=== PATIENT | male | born 1995 ===

== ENCOUNTER 2016-11-19 00:58 | Emergency (ER) | payer OTHER ==
[2016-11-19 01:09] VITALS: RESP 18; TEMP 98.3; O2SAT 94
[2016-11-19 02:46] VITALS: BP 110/54; PULSE 98
== END 2016-11-19 02:41 | disposition home or self-care (01) ==
LOC: ED 00:58
DX: S06.9X9A Unspecified intracranial injury with loss of consciousness of unspecified duration, initial encounter (principal); R40.2412 Glasgow coma scale score 13-15, at arrival to emergency department; Y04.0XXA Assault by unarmed brawl or fight, initial encounter; F10.129 Alcohol abuse with intoxication, unspecified
CPT/HCPCS: 70450; 99282; 99284

== ENCOUNTER 2017-07-30 05:30 | Emergency (ER) | payer OTHER ==
[2017-07-30 05:36] VITALS: TEMP 96.7
[2017-07-30] MEDS ORDERED: PANTOPRAZOLE SODIUM 40 MG ECT PO ONE ×2 (06:01→06:18)
[2017-07-30] MEDS ORDERED: LABETALOL HYDROCHLORIDE 100 MG TAB PO ONE (06:16)
[2017-07-30] MEDS ORDERED: LABETALOL HYDROCHLORIDE 100 MG TAB ONE (06:20)
[2017-07-30 06:25] LABS: BASOPHILS % (AUTO) 1 % (0-3); EOSINOPHILS % (AUTO) 4 % (0-9); HEMATOCRIT 44 % (39-53); MEAN CORPUSCULAR HGB CONC 36.8 gm/dl (32.0-36.0); MEAN CORPUSCULAR VOLUME 90 fL (80-100); MONOCYTES % (AUTO) 9.4 % (0-12); NEUTROPHILS % (AUTO) 51.2 % (37-80)
[2017-07-30 06:41] LABS: CALCIUM 8.9 mg/dl (8.5-10.1); GLOM FILT RATE 81 mL/min (>60); POTASSIUM 3.8 mMol/L (3.5-5.1); SODIUM 141 mMol/L (136-145)
[2017-07-30 07:57] VITALS: PULSE 91; O2SAT 91
[2017-07-30 07:58] VITALS: BP 129/84; RESP 27
== END 2017-07-30 07:25 | disposition home or self-care (01) ==
LOC: ED 05:30
DX: R07.89 Other chest pain (principal); K21.9 Gastro-esophageal reflux disease without esophagitis; R03.0 Elevated blood-pressure reading, without diagnosis of hypertension
CPT/HCPCS: 36415; 71045; 80048; 84484; 85025; 93005; 99284; A9270-GY

== ENCOUNTER 2017-09-08 11:10 | Inpatient (IN) | payer OTHER ==
[2017-09-08] MEDS ORDERED: HYDROMORPHONE 1 MG/ML SYRINGE IV ONE (11:26)
[2017-09-08] MEDS ORDERED: ONDANSETRON HCL 4 MG/2 ML SOL IV ONE ×2 (11:26→18:00)
[2017-09-08] MEDS ORDERED: SODIUM CHLORIDE 0.9% 1000ML 1,000 ML IV ONE ×3 (11:27→22:05)
[2017-09-08] MEDS ORDERED: ONDANSETRON HCL 4 MG/2 ML SOL ONE (11:36)
[2017-09-08 11:37] LABS: BASOPHILS % (AUTO) 1 % (0-3); EOSINOPHILS % (AUTO) 4 % (0-9); HEMATOCRIT 48 % (39-53); HEMOGLOBIN 16.2 gm/dl (13.5-17.7); LYMPHOCYTES % (AUTO) 35.5 % (10-50); MEAN CORPUSCULAR HEMOGLOBIN 32.8 pg (27.0-32.0); MEAN CORPUSCULAR VOLUME 96 fL (80-100); MONOCYTES % (AUTO) 8.5 % (0-12); NEUTROPHILS % (AUTO) 51.1 % (37-80)
[2017-09-08] MEDS ORDERED: HYDROMORPHONE HCL 2 MG/ML SOL ONE ×4 (11:39→13:57)
[2017-09-08] MEDS ORDERED: HYDROMORPHONE 1 MG/ML SYRINGE IV PRN ×2 (11:40→11:58)
[2017-09-08 11:53] LABS: ALBUMIN 3.9 gm/dl (3.4-5.0); BILIRUBIN,TOTAL 0.4 mg/dl (0.2-1.0); CARBON DIOXIDE 24.7 mEq/L (21-32); CREATININE 1.09 mg/dl (0.80-1.30); POTASSIUM 3.6 mMol/L (3.5-5.1); TOTAL PROTEIN 7.9 gm/dl (6.4-8.2)
[2017-09-08 12:50] LABS: APPEARANCE,URINE Clear; BILIRUBIN,URINE NEGATIVE (NEGATIVE); COLOR,URINE Yellow; GLUCOSE, URINE (UA) NEGATIVE (NEGATIVE); KETONES,URINE NEGATIVE (NEGATIVE); LEUKOCYTE ESTERASE ,URINE NEGATIVE (NEGATIVE); NITRATE,URINE NEGATIVE (NEGATIVE); OCCULT BLOOD,URINE NEGATIVE (NEG-TRACE); PH,URINE 6.5; UROBILINOGEN,URINE 0.2 (0.2-1.0 EU)
[2017-09-08 12:59] LABS: BACTERIA NEGATIVE (< 1+); CRYSTALS NEGATIVE (0-3 AVE/HPF); EPITHELIAL CELLS 0-2 (SQUAMOUS); RBC,URINE NEG (0-3AV/HPF); WBC,URINE NEG (0-5AV/HPF)
[2017-09-08] MEDS ORDERED: PIPERACILLIN/TAZOBACT 3.375 GM PDS IV ONE ×3 (13:32→19:32)
[2017-09-08] MEDS: PIPERACILLIN/TAZOBACT 3.375 GM 3.375 GM in SODIUM CHLORIDE 0.9% 100 ML 100 ML IV SCH ×2 (13:46→19:55)
[2017-09-08] MEDS: HYDROMORPHONE HCL 2 MG/ML SOL IV PRN ×2 (14:06→17:08)
[2017-09-08] MEDS ORDERED: LISINOPRIL 10 MG PO SCH (14:30)
[2017-09-08] MEDS: PANTOPRAZOLE SODIUM 40 MG/10 ML PDS IV SCH (14:48)
[2017-09-08] MEDS: AMLODIPINE 5 MG TAB PO SCH (14:48)
[2017-09-08] MEDS ORDERED: ONDANSETRON HCL 4 MG/2 ML SOL IV PRN (17:03)
[2017-09-08] MEDS ORDERED: KETOROLAC TROMETHAMINE 30 MG/ML SOL IV ONE (17:46)
[2017-09-08] MEDS: PROCHLORPERAZINE EDISYLATE 5 MG/ML SOL IV PRN (18:30)
[2017-09-08] MEDS ORDERED: MORPHINE SULFATE 10 MG/ML SOL IV PRN (19:15)
[2017-09-08] MEDS ORDERED: SODIUM CHLORIDE 0.9% 100 ML 100 ML IV ONE ×2 (19:32)
[2017-09-08] MEDS ORDERED: MORPHINE SULFATE 10 MG/ML SOL ONE ×2 (21:06→22:21)
[2017-09-08] MEDS ORDERED: PROMETHAZINE HYDROCHLORIDE 25 MG/ML SOL IV ONE (21:56)
[2017-09-08] MEDS ORDERED: SODIUM CHLORIDE 0.9% FLUSH 10 ML SOL IV PRN (22:14)
[2017-09-08] MEDS: MORPHINE SULFATE 10 MG/ML SOL IV PRN (22:24)
[2017-09-08] MEDS: ONDANSETRON HCL 4 MG/2 ML SOL IV SCH (23:26)
[2017-09-09] MEDS: PIPERACILLIN/TAZOBACT 3.375 GM 3.375 GM in SODIUM CHLORIDE 0.9% 100 ML 100 ML IV SCH ×2 (01:51→07:34)
[2017-09-09] MEDS ORDERED: SODIUM CHLORIDE 0.9% 1000 ML SOL IV SCH (02:15)
[2017-09-09] MEDS: SODIUM CHLORIDE 0.9% 1000ML 1,000 ML IV SCH ×2 (03:00→07:37)
[2017-09-09] MEDS ORDERED: MORPHINE SULFATE 10 MG/ML SOL ONE ×3 (03:55→06:13)
[2017-09-09] MEDS: MORPHINE SULFATE 10 MG/ML SOL IV PRN ×3 (04:00→06:17)
[2017-09-09] MEDS: PROCHLORPERAZINE EDISYLATE 5 MG/ML SOL IV PRN (04:00)
[2017-09-09] MEDS: ONDANSETRON HCL 4 MG/2 ML SOL IV SCH (05:01)
[2017-09-09 06:52] LABS: BILIRUBIN,TOTAL 0.9 mg/dl (0.2-1.0); CALCIUM 8.4 mg/dl (8.5-10.1); CARBON DIOXIDE 27.5 mEq/L (21-32); CREATININE 1.2 mg/dl (0.80-1.30); POTASSIUM 3.8 mMol/L (3.5-5.1); TOTAL PROTEIN 7.8 gm/dl (6.4-8.2)
[2017-09-09 06:56] LABS: HEMATOCRIT 45 % (39-53); HEMOGLOBIN 15.6 gm/dl (13.5-17.7); MEAN CORPUSCULAR HGB CONC 34.9 gm/dl (32.0-36.0); MEAN CORPUSCULAR VOLUME 98 fL (80-100)
[2017-09-09] MEDS ORDERED: LORAZEPAM 2 MG/ML 10ML MDV 2 MG/ML VIAL IV ONE (07:23)
[2017-09-09] MEDS ORDERED: SODIUM CHLORIDE 0.9% 100 ML 100 ML IV ONE (07:24)
[2017-09-09] MEDS ORDERED: PIPERACILLIN/TAZOBACT 3.375 GM PDS IV ONE (07:24)
[2017-09-09] MEDS ORDERED: LORAZEPAM 2 MG/ML SOL ONE (07:36)
[2017-09-09 07:41] VITALS: BP 151/93; PULSE 108; TEMP 97
[2017-09-09] MEDS: PANTOPRAZOLE SODIUM 40 MG/10 ML PDS IV SCH (07:41)
[2017-09-09] MEDS: AMLODIPINE 5 MG TAB PO SCH (07:41)
[2017-09-09 08:18] LABS: BAND NEUTROPHILS % (MANUAL) 2 %; BASOPHILS % (MANUAL) 0 % (0-3); EOSINOPHILS % (MANUAL) 0 % (0-9); LYMPHOCYTES % (MANUAL) 11 % (10-50); MONOCYTES % (MANUAL) 11 % (0-12); NEUTROPHILS % (MANUAL) 76 % (37-80); NORMAL RBCS NORMAL RBCS; PLATELET MORPHOLOGY COMMENT ADEQUATE
[2017-09-09 08:44] VITALS: RESP 18; O2SAT 97
[2017-09-09] MEDS ORDERED: LISINOPRIL 5 MG TAB PO SCH (09:00)
== END 2017-09-09 08:45 | disposition short-term general hospital (02) | DRG 282 ==
LOC: ED 11:10 → UNDOADMIN 13:11 → ACUTE CARE 13:11
PROVIDERS: ADMIT Family Medicine; ATTEND Family Medicine
DX: K85.10 Biliary acute pancreatitis without necrosis or infection (principal); F12.90 Cannabis use, unspecified, uncomplicated; R06.02 Shortness of breath
CPT/HCPCS: 36415; 74177; 80053; 81001; 82150; 85007; 85025; 85027; 93005; 94762; 96365; 96366; 96374; 96375; 99070; 99222; 99238; 99285; J0780; J1170; J1885; J2060; J2270; J2405; J2543; J2550; Q9967; A9270-GY

== ENCOUNTER 2017-11-29 18:11 | Inpatient (IN) | payer OTHER ==
[2017-11-29] MEDS ORDERED: MORPHINE SULFATE 10 MG/ML SOL IV ONE (18:29)
[2017-11-29] MEDS ORDERED: SODIUM CHLORIDE 0.9% 1000ML 1,000 ML IV SCH (18:30)
[2017-11-29] MEDS ORDERED: MORPHINE SULFATE 10 MG/ML SOL ONE (18:46)
[2017-11-29 18:59] LABS: ALBUMIN 4.2 gm/dl (3.4-5.0); BILIRUBIN,TOTAL 0.7 mg/dl (0.2-1.0); CALCIUM 9.5 mg/dl (8.5-10.1); CREATININE 1.16 mg/dl (0.80-1.30); POTASSIUM 4.1 mMol/L (3.5-5.1); TOTAL PROTEIN 7.6 gm/dl (6.4-8.2)
[2017-11-29 19:09] LABS: APPEARANCE,URINE Clear; BILIRUBIN,URINE NEGATIVE (NEGATIVE); COLOR,URINE Yellow; GLUCOSE, URINE (UA) NEGATIVE (NEGATIVE); KETONES,URINE TRACE (NEGATIVE); LEUKOCYTE ESTERASE ,URINE NEGATIVE (NEGATIVE); NITRATE,URINE NEGATIVE (NEGATIVE); OCCULT BLOOD,URINE NEGATIVE (NEG-TRACE); PH,URINE 5.5; UROBILINOGEN,URINE 0.2 (0.2-1.0 EU)
[2017-11-29] MEDS ORDERED: HYDROMORPHONE HCL 2 MG/ML SOL IV ONE (19:32)
[2017-11-29] MEDS ORDERED: HYDROMORPHONE HCL 2 MG/ML SOL ONE ×2 (19:34→20:59)
[2017-11-29 19:37] LABS: HEMATOCRIT 45 % (39-53)
[2017-11-29 19:42] LABS: BACTERIA NEGATIVE (< 1+); CRYSTALS NEGATIVE (0-3 AVE/HPF); EPITHELIAL CELLS 0-1 (SQUAMOUS); RBC,URINE NEGATIVE (0-3AV/HPF); WBC,URINE NEGATIVE (0-5AV/HPF)
[2017-11-29] MEDS: SODIUM CHLORIDE 0.9% 1000ML 1,000 ML IV SCH (20:00)
[2017-11-29] MEDS: HYDROMORPHONE HCL 2 MG/ML SOL IV PRN ×2 (21:02→23:48)
[2017-11-30] MEDS: SODIUM CHLORIDE 0.9% 1000ML 1,000 ML IV SCH ×6 (01:38→23:02)
[2017-11-30] MEDS: HYDROMORPHONE HCL 2 MG/ML SOL IV PRN ×8 (02:07→21:58)
[2017-11-30] MEDS ORDERED: LORAZEPAM 2 MG/ML 10ML MDV 2 MG/ML VIAL IV PRN (04:38)
[2017-11-30] MEDS ORDERED: LORAZEPAM 2 MG/ML SOL IV PRN (04:41)
[2017-11-30] MEDS ORDERED: LORAZEPAM 2 MG/ML SOL ONE (04:49)
[2017-11-30 07:28] LABS: CALCIUM 8.1 mg/dl (8.5-10.1); CARBON DIOXIDE 28.3 mEq/L (21-32); CREATININE 1.02 mg/dl (0.80-1.30); POTASSIUM 3.9 mMol/L (3.5-5.1)
[2017-11-30] MEDS ORDERED: LISINOPRIL 20 MG TAB ONE (07:52)
[2017-11-30] MEDS: PANTOPRAZOLE SODIUM 40 MG ECT PO SCH (08:02)
[2017-11-30] MEDS: AMLODIPINE 5 MG TAB PO SCH (08:02)
[2017-11-30] MEDS ORDERED: LISINOPRIL 10 MG PO SCH (09:00)
[2017-11-30] MEDS: CLONAZEPAM 0.5 MG TAB PO PRN ×2 (10:15→23:57)
[2017-11-30] MEDS: KETOROLAC TROMETHAMINE 30 MG/ML SOL IV PRN (20:50)
[2017-11-30 22:00] LABS: MEAN CORPUSCULAR HGB CONC 36.4 gm/dl (32.0-36.0); MEAN CORPUSCULAR VOLUME 93 fL (80-100)
[2017-11-30] MEDS: APAP/OXYCODONE 325/5 TAB PO PRN (23:08)
[2017-12-01] MEDS: HYDROMORPHONE HCL 2 MG/ML SOL IV PRN ×6 (03:26→19:15)
[2017-12-01] MEDS: APAP/OXYCODONE 325/5 TAB PO PRN ×3 (07:34→20:21)
[2017-12-01 07:48] LABS: CALCIUM 8.4 mg/dl (8.5-10.1); CREATININE 1.02 mg/dl (0.80-1.30); CRP INFLAMMATORY 0.89 mg/dl (0.00-0.33); POTASSIUM 3.9 mMol/L (3.5-5.1)
[2017-12-01] MEDS: LISINOPRIL 5 MG TAB PO SCH (08:03)
[2017-12-01] MEDS: AMLODIPINE 5 MG TAB PO SCH (08:03)
[2017-12-01] MEDS: PANTOPRAZOLE SODIUM 40 MG ECT PO SCH (08:03)
[2017-12-01 08:25] LABS: HEMATOCRIT 42 % (39-53); HEMOGLOBIN 14.9 gm/dl (13.5-17.7); MEAN CORPUSCULAR VOLUME 97 fL (80-100)
[2017-12-01 09:03] LABS: BAND NEUTROPHILS % (MANUAL) 0 %; BASOPHILS % (MANUAL) 3 % (0-3); EOSINOPHILS % (MANUAL) 5 % (0-9); LYMPHOCYTES % (MANUAL) 30 % (10-50); MONOCYTES % (MANUAL) 15 % (0-12); NEUTROPHILS % (MANUAL) 47 % (37-80)
[2017-12-01 09:04] LABS: ANISOCYTOSIS SLIGHT
[2017-12-01] MEDS: ONDANSETRON HCL 4 MG/2 ML SOL IV PRN (09:56)
[2017-12-01] MEDS: SODIUM CHLORIDE 0.9% 1000ML 1,000 ML IV SCH ×3 (11:47→21:24)
[2017-12-01] MEDS: CLONAZEPAM 0.5 MG TAB PO PRN (23:41)
[2017-12-01] MEDS: KETOROLAC TROMETHAMINE 30 MG/ML SOL IV PRN (23:41)
[2017-12-02] MEDS: HYDROMORPHONE HCL 2 MG/ML SOL IV PRN ×2 (00:33→18:36)
[2017-12-02] MEDS: APAP/OXYCODONE 325/5 TAB PO PRN ×5 (02:46→19:56)
[2017-12-02] MEDS: SODIUM CHLORIDE 0.9% 1000ML 1,000 ML IV SCH (07:30)
[2017-12-02] MEDS: CLONAZEPAM 0.5 MG TAB PO PRN (07:30)
[2017-12-02 07:54] LABS: HEMATOCRIT 42 % (39-53); HEMOGLOBIN 14.3 gm/dl (13.5-17.7); MEAN CORPUSCULAR HEMOGLOBIN 33.6 pg (27.0-32.0)
[2017-12-02 07:56] LABS: MEAN CORPUSCULAR VOLUME 99 fL (80-100)
[2017-12-02 08:04] LABS: ALBUMIN 3.2 gm/dl (3.4-5.0); BILIRUBIN,TOTAL 0.8 mg/dl (0.2-1.0); CALCIUM 8.6 mg/dl (8.5-10.1); CARBON DIOXIDE 25.4 mEq/L (21-32); CREATININE 1.04 mg/dl (0.80-1.30); POTASSIUM 3.8 mMol/L (3.5-5.1); TOTAL PROTEIN 6.3 gm/dl (6.4-8.2)
[2017-12-02] MEDS: PANTOPRAZOLE SODIUM 40 MG ECT PO SCH (08:45)
[2017-12-02] MEDS: AMLODIPINE 5 MG TAB PO SCH (08:45)
[2017-12-02] MEDS: LISINOPRIL 5 MG TAB PO SCH (08:46)
[2017-12-02 11:52] LABS: BAND NEUTROPHILS % (MANUAL) 1 %; NEUTROPHILS % (MANUAL) 53 % (37-80)
[2017-12-02 11:53] LABS: ANISOCYTOSIS SLIGHT AMT; BASOPHILS % (MANUAL) 0 % (0-3); EOSINOPHILS % (MANUAL) 3 % (0-9); LYMPHOCYTES % (MANUAL) 28 % (10-50); MONOCYTES % (MANUAL) 15 % (0-12)
[2017-12-02] MEDS: ONDANSETRON HCL 4 MG/2 ML SOL IV PRN ×2 (12:21→18:33)
[2017-12-02] MEDS ORDERED: PROCHLORPERAZINE EDISYLATE 5 MG/ML SOL IV PRN (18:35)
[2017-12-03] MEDS: CLONAZEPAM 0.5 MG TAB PO PRN ×2 (00:23→08:08)
[2017-12-03] MEDS: APAP/OXYCODONE 325/5 TAB PO PRN ×2 (00:23→07:05)
[2017-12-03 07:30] VITALS: BP 131/95; PULSE 48; RESP 16; TEMP 97.8; O2SAT 98
[2017-12-03] MEDS: AMLODIPINE 5 MG TAB PO SCH (08:06)
[2017-12-03] MEDS: PANTOPRAZOLE SODIUM 40 MG ECT PO SCH (08:06)
[2017-12-03] MEDS: LISINOPRIL 5 MG TAB PO SCH (08:07)
[2017-12-03] MEDS ORDERED: SODIUM CHLORIDE 0.9% FLUSH 10 ML SOL IV SCH (08:15)
[2017-12-05 09:11] LABS: *HEPATITIS C ANTIBODY Negative (Negative)
== END 2017-12-03 09:45 | DRG 282 ==
LOC: ED 18:11 → ACUTE CARE 19:39 → UNDOADMIN 19:39 → ACUTE CARE 21:58
PROVIDERS: ADMIT Family Medicine; ATTEND Family Medicine
DX: K85.90 Acute pancreatitis without necrosis or infection, unspecified (principal); I10 Essential (primary) hypertension
CPT/HCPCS: 36415; 74177; 80048; 80053; 81001; 82150; 85007; 85025; 85027; 96365; 96366; 96374; 96375; 99222; 99231; 99284; J0780; J1170; J1885; J2060; J2270; J2405; Q9967; A9270-GY

== ENCOUNTER 2017-12-03 20:55 | Emergency (ER) | payer OTHER ==
[2017-12-03 21:08] VITALS: BP 148/96; RESP 18; TEMP 97.8
[2017-12-03 21:15] VITALS: PULSE 110; O2SAT 93
[2017-12-03] MEDS ORDERED: KETOROLAC TROMETHAMINE 30 MG/ML SOL IM ONE (21:27)
[2017-12-03] MEDS ORDERED: KETOROLAC TROMETHAMINE 30 MG/ML SOL ONE (21:30)
[2017-12-03 21:49] LABS: HEMATOCRIT 44 % (39-53); HEMOGLOBIN 15.1 gm/dl (13.5-17.7); MEAN CORPUSCULAR HEMOGLOBIN 33.5 pg (27.0-32.0); MEAN CORPUSCULAR HGB CONC 34.1 gm/dl (32.0-36.0); MEAN CORPUSCULAR VOLUME 98 fL (80-100)
[2017-12-03 21:56] LABS: ALBUMIN 3.8 gm/dl (3.4-5.0); BILIRUBIN,TOTAL 0.6 mg/dl (0.2-1.0); CALCIUM 9.5 mg/dl (8.5-10.1); CARBON DIOXIDE 28.1 mEq/L (21-32); CREATININE 1.24 mg/dl (0.80-1.30); TOTAL PROTEIN 7.5 gm/dl (6.4-8.2)
[2017-12-03 22:12] LABS: BAND NEUTROPHILS % (MANUAL) 6 %; BASOPHILS % (MANUAL) 1 % (0-3); EOSINOPHILS % (MANUAL) 3 % (0-9); LYMPHOCYTES % (MANUAL) 19 % (10-50); MONOCYTES % (MANUAL) 7 % (0-12); NEUTROPHILS % (MANUAL) 64 % (37-80)
== END 2017-12-03 22:44 ==
LOC: ED 20:55
DX: K59.00 Constipation, unspecified (principal); R11.10 Vomiting, unspecified
CPT/HCPCS: 36415; 74019; 80053; 82150; 85007; 85027; 96372; 99282; 99283; J1885

== ENCOUNTER 2018-06-17 13:07 | Emergency (ER) | payer BC, OTHER ==
[2018-06-17 13:13] VITALS: RESP 18; TEMP 98
[2018-06-17] MEDS: SODIUM CHLORIDE 0.9% FLUSH 10 ML SOL IV PRN ×2 (13:15→13:45)
[2018-06-17] MEDS ORDERED: ONDANSETRON HCL 4 MG/2 ML SOL IV ONE (13:38)
[2018-06-17] MEDS ORDERED: SODIUM CHLORIDE 0.9% 1000ML 1,000 ML IV ONE (13:38)
[2018-06-17] MEDS ORDERED: ONDANSETRON HCL 4 MG/2 ML SOL ONE (13:42)
[2018-06-17 13:46] LABS: LACTIC ACID 1.1 mMol/L (0.0-2.0)
[2018-06-17 13:49] LABS: BASOPHILS % (AUTO) 2 % (0-3); EOSINOPHILS % (AUTO) 2 % (0-9); HEMATOCRIT 51 % (39-53); HEMOGLOBIN 16.6 gm/dl (13.5-17.7); LYMPHOCYTES % (AUTO) 23.3 % (10-50); MEAN CORPUSCULAR HEMOGLOBIN 29.3 pg (27.0-32.0); MEAN CORPUSCULAR HGB CONC 32.7 gm/dl (32.0-36.0); MEAN CORPUSCULAR VOLUME 90 fL (80-100); MONOCYTES % (AUTO) 8.6 % (0-12); NEUTROPHILS % (AUTO) 64.1 % (37-80)
[2018-06-17 13:58] LABS: ALBUMIN 3.9 gm/dl (3.4-5.0); ALKALINE PHOSPHATASE 105 IU/L (46-116); ALT 27 IU/L (14-63); AST 24 IU/L (15-37); BILIRUBIN,TOTAL 0.9 mg/dl (0.2-1.0); BLOOD UREA NITROGEN 13 mg/dl (7-18); CALCIUM 9.2 mg/dl (8.5-10.1); CARBON DIOXIDE 27.1 mEq/L (21-32); CHLORIDE 100 mMol/L (98-107); CREATININE 1.13 mg/dl (0.80-1.30); GLUCOSE 114 mg/dl (74-106); POTASSIUM 4.1 mMol/L (3.5-5.1); SODIUM 136 mMol/L (136-145); TOTAL PROTEIN 7.8 gm/dl (6.4-8.2)
[2018-06-17 14:01] LABS: ALCOHOL < 0.003 gm/dl (0.000-0.08)
[2018-06-17] MEDS ORDERED: HYDROMORPHONE 1 MG/ML SYRINGE ONE (14:09)
[2018-06-17] MEDS ORDERED: HYDROMORPHONE HCL 2 MG/ML SOL IV ONE (14:11)
[2018-06-17] MEDS ORDERED: LORAZEPAM 2 MG/ML SOL IV ONE (16:49)
[2018-06-17] MEDS ORDERED: LORAZEPAM 2 MG/ML SOL ONE (16:50)
[2018-06-17 17:50] VITALS: BP 124/77; PULSE 74; O2SAT 99
== END 2018-06-17 18:09 | disposition home or self-care (01) ==
LOC: ED 13:07
DX: R10.13 Epigastric pain (principal)
CPT/HCPCS: 80053; 80307; 85025; 96365; 96366; 96374; 96375; 99283; 99285; J2060; J2405; J1170

== ENCOUNTER 2018-07-25 03:09 | Emergency (ER) | payer BC, OTHER ==
[2018-07-25 03:21] VITALS: TEMP 98
[2018-07-25] MEDS ORDERED: KETOROLAC TROMETHAMINE 30 MG/ML SOL IV ONE (03:47)
[2018-07-25] MEDS ORDERED: MORPHINE SULFATE 10 MG/ML SOL IV ONE (03:48)
[2018-07-25] MEDS ORDERED: KETOROLAC TROMETHAMINE 30 MG/ML SOL ONE (04:00)
[2018-07-25] MEDS ORDERED: SODIUM CHLORIDE 0.9% 1000ML 1,000 ML IV SCH (04:00)
[2018-07-25] MEDS ORDERED: MORPHINE SULFATE 10 MG/ML SOL ONE (04:01)
[2018-07-25 04:12] VITALS: O2SAT 97
[2018-07-25 04:24] LABS: BASOPHILS % (AUTO) 1 % (0-3); EOSINOPHILS % (AUTO) 7 % (0-9); HEMATOCRIT 46 % (39-53); HEMOGLOBIN 15.4 gm/dl (13.5-17.7); LYMPHOCYTES % (AUTO) 22.4 % (10-50); MEAN CORPUSCULAR HGB CONC 33.3 gm/dl (32.0-36.0); MEAN CORPUSCULAR VOLUME 90 fL (80-100); MONOCYTES % (AUTO) 8.8 % (0-12); NEUTROPHILS % (AUTO) 60.5 % (37-80)
[2018-07-25 04:29] LABS: ALBUMIN 3.3 gm/dl (3.4-5.0); ALCOHOL < 0.003 gm/dl (0.000-0.08); ALKALINE PHOSPHATASE 96 IU/L (46-116); ALT 40 IU/L (14-63); AST 43 IU/L (15-37); BILIRUBIN,TOTAL 0.5 mg/dl (0.2-1.0); BLOOD UREA NITROGEN 14 mg/dl (7-18); CALCIUM 8.6 mg/dl (8.5-10.1); CARBON DIOXIDE 26.3 mEq/L (21-32); CHLORIDE 102 mMol/L (98-107); CREATININE 1.16 mg/dl (0.80-1.30); GLUCOSE 113 mg/dl (74-106); POTASSIUM 4.2 mMol/L (3.5-5.1); SODIUM 137 mMol/L (136-145); TOTAL PROTEIN 7.1 gm/dl (6.4-8.2)
[2018-07-25 04:39] LABS: LACTIC ACID 0.8 mMol/L (0.0-2.0)
[2018-07-25 04:43] VITALS: BP 139/86; PULSE 78; RESP 18
== END 2018-07-25 05:02 | disposition home or self-care (01) ==
LOC: ED 03:09
DX: K85.90 Acute pancreatitis without necrosis or infection, unspecified (principal)
CPT/HCPCS: 36415; 80053; 80307; 85025; 96365; 96374; 96375; 99282; 99283; J1885; J2270

== ENCOUNTER 2018-09-25 07:43 | Inpatient (IN) | payer OTHER ==
[2018-09-25] MEDS ORDERED: LORAZEPAM 2 MG/ML SOL IV ONE ×3 (08:18→10:39)
[2018-09-25] MEDS ORDERED: CLONIDINE 0.1 MG TAB PO ONE (08:32)
[2018-09-25] MEDS ORDERED: LORAZEPAM 2 MG/ML SOL ONE ×2 (08:33→10:41)
[2018-09-25] MEDS ORDERED: CLONIDINE 0.1 MG TAB ONE (08:34)
[2018-09-25] MEDS: SODIUM CHLORIDE 0.9% 1000 ML SOL IV SCH (09:54)
[2018-09-25] MEDS ORDERED: AMLODIPINE 5 MG TAB ONE (09:57)
[2018-09-25] MEDS ORDERED: LISINOPRIL 5 MG TAB ONE (09:57)
[2018-09-25] MEDS: LISINOPRIL 5 MG TAB PO SCH (09:58)
[2018-09-25] MEDS: AMLODIPINE 5 MG TAB PO SCH (09:58)
[2018-09-25] MEDS ORDERED: SODIUM CHLORIDE 0.9% 1000 ML SOL IV SCH (10:45)
[2018-09-25 11:44] LABS: ALBUMIN 3.9 gm/dl (3.4-5.0); BILIRUBIN,TOTAL 0.4 mg/dl (0.2-1.0); CALCIUM 8.7 mg/dl (8.5-10.1); CARBON DIOXIDE 24.3 mEq/L (21-32); CREATININE 0.97 mg/dl (0.80-1.30); TOTAL PROTEIN 7.7 gm/dl (6.4-8.2)
[2018-09-25] MEDS ORDERED: POTASSIUM CHLORIDE 2 MEQ/ML SOL IV SCH (12:00)
[2018-09-25] MEDS ORDERED: LACTATED RINGERS 1,000 ML IV ONE (12:01)
[2018-09-25] MEDS ORDERED: POTASSIUM CHLORIDE 2 MEQ/ML SOL IV ONE (12:19)
[2018-09-25] MEDS ORDERED: LIDOCAINE HCL 1% MDV 50 ML SOL IV ONE (12:36)
[2018-09-25] MEDS ORDERED: LIDOCAINE HCL 1% MPF 30 SOL ONE (12:42)
[2018-09-25] MEDS ORDERED: ONDANSETRON HCL 4 MG/2 ML SOL IV ONE (12:55)
[2018-09-25] MEDS ORDERED: ONDANSETRON HCL 4 MG/2 ML SOL ONE (13:13)
[2018-09-25] MEDS ORDERED: FENTANYL 100MCG/2ML SOL IV ONE ×2 (14:46→17:30)
[2018-09-25] MEDS ORDERED: FENTANYL 100MCG/2ML SOL ONE (14:52)
[2018-09-25] MEDS ORDERED: ONDANSETRON HCL 4 MG/2 ML SOL IV PRN (17:38)
[2018-09-25] MEDS ORDERED: ALUMINUM/MAGNESIUM 30 ML SUS PO PRN (17:38)
[2018-09-25] MEDS ORDERED: FENTANYL 100MCG/2ML SOL IV PRN (17:43)
[2018-09-25] MEDS: ONDANSETRON HCL 4 MG/2 ML SOL IV PRN (17:49)
[2018-09-25] MEDS: DEXTROSE/SALINE 0.45/KCL 20MEQ 1,000 ML/1,000 ML SOL IV SCH ×2 (17:49→22:41)
[2018-09-25 18:47] LABS: INR 1.06 (0.86-1.12)
[2018-09-25 18:50] LABS: CRP INFLAMMATORY 0.57 mg/dl (0.00-0.33); POTASSIUM 4.1 mMol/L (3.5-5.1)
[2018-09-25] MEDS ORDERED: MORPHINE SULFATE 10 MG/ML SOL IV ONE (19:58)
[2018-09-25] MEDS: SODIUM CHLORIDE 0.9% FLUSH 10 ML SOL IV SCH ×2 (20:00→20:16)
[2018-09-25] MEDS ORDERED: MORPHINE SULFATE 10 MG/ML SOL ONE (20:06)
[2018-09-25] MEDS: LORAZEPAM 2 MG/ML SOL IV PRN (20:11)
[2018-09-25] MEDS ORDERED: MORPHINE SULFATE 30 MG VIAL IV PRN (20:47)
[2018-09-25] MEDS ORDERED: NALOXONE HYDROCHLORIDE 0.4 MG/ML SOL IV PRN (20:48)
[2018-09-25] MEDS ORDERED: HYDROMORPHONE HCL 2 MG/ML SOL IV PRN ×2 (22:11→22:18)
[2018-09-25] MEDS ORDERED: HYDROMORPHONE 1 MG/ML SYRINGE ONE (23:02)
[2018-09-25] MEDS: POTASSIUM CHLORIDE IV SCH (23:23)
[2018-09-25] MEDS: SODIUM CHLORIDE IV SCH (23:23)
[2018-09-26] MEDS: SODIUM CHLORIDE 0.9% FLUSH 10 ML SOL IV SCH ×4 (02:04→22:17)
[2018-09-26] MEDS: ONDANSETRON HCL 4 MG/2 ML SOL IV PRN ×4 (02:18→23:33)
[2018-09-26] MEDS: SODIUM CHLORIDE IV SCH ×4 (04:31→20:09)
[2018-09-26] MEDS: POTASSIUM CHLORIDE IV SCH ×4 (04:31→20:09)
[2018-09-26 07:13] LABS: BASOPHILS % (AUTO) 1 % (0-3); EOSINOPHILS % (AUTO) 3 % (0-9); HEMATOCRIT 44 % (39-53); HEMOGLOBIN 14.4 gm/dl (13.5-17.7); LYMPHOCYTES % (AUTO) 27.2 % (10-50); MEAN CORPUSCULAR HEMOGLOBIN 31.5 pg (27.0-32.0); MEAN CORPUSCULAR HGB CONC 32.6 gm/dl (32.0-36.0); MEAN CORPUSCULAR VOLUME 97 fL (80-100); MONOCYTES % (AUTO) 9.1 % (0-12); NEUTROPHILS % (AUTO) 59.9 % (37-80)
[2018-09-26 07:16] LABS: ALBUMIN 3.4 gm/dl (3.4-5.0); CALCIUM 8.2 mg/dl (8.5-10.1); CARBON DIOXIDE 28.1 mEq/L (21-32); CREATININE 1.03 mg/dl (0.80-1.30); CRP INFLAMMATORY 0.61 mg/dl (0.00-0.33); TOTAL PROTEIN 6.7 gm/dl (6.4-8.2)
[2018-09-26] MEDS ORDERED: MAGNESIUM HYDROXIDE 30 ML SUS PO PRN (07:42)
[2018-09-26] MEDS ORDERED: HYDROMORPHONE 1 MG/ML SYRINGE IV ONE ×3 (08:00→21:52)
[2018-09-26] MEDS: DIPHENHYDRAMINE 50 MG/ML SOL IV PRN ×2 (08:06→14:08)
[2018-09-26] MEDS: LISINOPRIL 5 MG TAB PO SCH (09:18)
[2018-09-26] MEDS: MULTIVITAMIN2 1 EA TAB PO SCH (09:19)
[2018-09-26] MEDS: THIAMINE 100 MG TAB PO SCH (09:19)
[2018-09-26] MEDS: AMLODIPINE 5 MG TAB PO SCH (09:19)
[2018-09-26] MEDS: FOLIC ACID 1 MG TAB PO SCH (09:19)
[2018-09-26] MEDS ORDERED: HYDROMORPHONE HCL 2 MG/ML SOL IV PRN ×2 (17:08→17:12)
[2018-09-26] MEDS: DOCUSATE SODIUM 100 MG SGL PO PRN (20:06)
[2018-09-26] MEDS: SENNOSIDES A AND B 8.6 MG TAB PO SCH (20:06)
[2018-09-26] MEDS ORDERED: MAGNESIUM CITRATE SOL PO PRN (21:46)
[2018-09-27] MEDS: LORAZEPAM 2 MG/ML SOL IV PRN ×3 (00:18→18:51)
[2018-09-27] MEDS: POTASSIUM CHLORIDE IV SCH ×2 (02:00→08:00)
[2018-09-27] MEDS: SODIUM CHLORIDE IV SCH ×2 (02:00→08:00)
[2018-09-27] MEDS: SODIUM CHLORIDE 0.9% FLUSH 10 ML SOL IV SCH ×3 (02:52→17:21)
[2018-09-27 07:10] LABS: BASOPHILS % (AUTO) 0 % (0-3); EOSINOPHILS % (AUTO) 0 % (0-9); HEMATOCRIT 51 % (39-53); MEAN CORPUSCULAR HEMOGLOBIN 31.8 pg (27.0-32.0); MEAN CORPUSCULAR HGB CONC 32.9 gm/dl (32.0-36.0); MEAN CORPUSCULAR VOLUME 97 fL (80-100); MONOCYTES % (AUTO) 5.6 % (0-12)
[2018-09-27 07:21] LABS: ALBUMIN 3.4 gm/dl (3.4-5.0); BILIRUBIN,TOTAL 1.4 mg/dl (0.2-1.0); CALCIUM 8.5 mg/dl (8.5-10.1); CARBON DIOXIDE 23.9 mEq/L (21-32); CREATININE 0.95 mg/dl (0.80-1.30); CRP INFLAMMATORY 7.31 mg/dl (0.00-0.33); POTASSIUM 4.9 mMol/L (3.5-5.1); TOTAL PROTEIN 6.9 gm/dl (6.4-8.2)
[2018-09-27] MEDS ORDERED: SODIUM CHLORIDE 0.9% 1000ML 1,000 ML IV ONE ×2 (08:19→08:37)
[2018-09-27] MEDS: FOLIC ACID 1 MG TAB PO SCH (08:45)
[2018-09-27] MEDS: MULTIVITAMIN2 1 EA TAB PO SCH (08:46)
[2018-09-27] MEDS: LISINOPRIL 5 MG TAB PO SCH (08:46)
[2018-09-27] MEDS: THIAMINE 100 MG TAB PO SCH (08:46)
[2018-09-27] MEDS: SENNOSIDES A AND B 8.6 MG TAB PO SCH ×2 (08:46→21:08)
[2018-09-27] MEDS: AMLODIPINE 5 MG TAB PO SCH (08:46)
[2018-09-27] MEDS: HYDROMORPHONE 1 MG/ML SYRINGE IV PRN ×3 (09:09→19:22)
[2018-09-27] MEDS: SODIUM CHLORIDE 0.9% 1000ML 1,000 ML IV SCH ×4 (11:30→18:03)
[2018-09-27] MEDS: ONDANSETRON HCL 4 MG/2 ML SOL IV PRN (11:30)
[2018-09-27] MEDS: PANTOPRAZOLE SODIUM 40 MG/10 ML PDS IV SCH (13:58)
[2018-09-27] MEDS: SODIUM CHLORIDE 0.9% 1000 ML SOL IV SCH (21:27)
[2018-09-27 21:42] LABS: BASOPHILS % (AUTO) 0 % (0-3); EOSINOPHILS % (AUTO) 0 % (0-9); HEMATOCRIT 49 % (39-53); HEMOGLOBIN 16.6 gm/dl (13.5-17.7); LYMPHOCYTES % (AUTO) 6.2 % (10-50); MEAN CORPUSCULAR HEMOGLOBIN 32.4 pg (27.0-32.0); MEAN CORPUSCULAR HGB CONC 33.6 gm/dl (32.0-36.0); MEAN CORPUSCULAR VOLUME 97 fL (80-100); MONOCYTES % (AUTO) 8.7 % (0-12); NEUTROPHILS % (AUTO) 84.5 % (37-80)
[2018-09-27 21:48] LABS: LACTIC ACID 1.1 mMol/L (0.0-2.0)
[2018-09-27 21:55] LABS: CRP INFLAMMATORY 24.37 mg/dl (0.00-0.33)
[2018-09-27 23:07] LABS: ALBUMIN 2.9 gm/dl (3.4-5.0); BILIRUBIN,TOTAL 1.2 mg/dl (0.2-1.0); CALCIUM 7.7 mg/dl (8.5-10.1); CARBON DIOXIDE 23.7 mEq/L (21-32); CREATININE 1.07 mg/dl (0.80-1.30); POTASSIUM 4.4 mMol/L (3.5-5.1); TOTAL PROTEIN 6.2 gm/dl (6.4-8.2)
[2018-09-28] MEDS: LORAZEPAM 2 MG/ML SOL IV PRN ×7 (00:13→22:25)
[2018-09-28] MEDS: SODIUM CHLORIDE 0.9% FLUSH 10 ML SOL IV SCH ×4 (02:34→20:30)
[2018-09-28] MEDS: METOCLOPRAMIDE HYDROCHLORIDE 5 MG/ML SOL IV PRN ×2 (03:16→13:45)
[2018-09-28] MEDS ORDERED: DEXTROSE 50 ML 50 ML IV ONE (05:19)
[2018-09-28] MEDS: HYDROMORPHONE 1 MG/ML SYRINGE IV PRN ×3 (05:43→18:25)
[2018-09-28 07:41] LABS: ALBUMIN 2.6 gm/dl (3.4-5.0); CALCIUM 7.7 mg/dl (8.5-10.1); CARBON DIOXIDE 24.3 mEq/L (21-32); CREATININE 1.07 mg/dl (0.80-1.30); POTASSIUM 4.4 mMol/L (3.5-5.1); TOTAL PROTEIN 5.9 gm/dl (6.4-8.2)
[2018-09-28 07:43] LABS: BASOPHILS % (AUTO) 1 % (0-3); EOSINOPHILS % (AUTO) 0 % (0-9); HEMATOCRIT 50 % (39-53); LYMPHOCYTES % (AUTO) 5.2 % (10-50); MEAN CORPUSCULAR HEMOGLOBIN 31.5 pg (27.0-32.0); MEAN CORPUSCULAR HGB CONC 32.1 gm/dl (32.0-36.0); MEAN CORPUSCULAR VOLUME 98 fL (80-100); NEUTROPHILS % (AUTO) 83.5 % (37-80)
[2018-09-28] MEDS ORDERED: LACTATED RINGERS 1,000 ML IV ONE (07:48)
[2018-09-28 08:15] LABS: CRP INFLAMMATORY 33.36 mg/dl (0.00-0.33)
[2018-09-28] MEDS: FOLIC ACID 1 MG TAB PO SCH (09:46)
[2018-09-28] MEDS: THIAMINE 100 MG TAB PO SCH (09:47)
[2018-09-28] MEDS: SENNOSIDES A AND B 8.6 MG TAB PO SCH ×2 (09:47→22:16)
[2018-09-28] MEDS: LISINOPRIL 5 MG TAB PO SCH (09:47)
[2018-09-28] MEDS: AMLODIPINE 5 MG TAB PO SCH (09:47)
[2018-09-28] MEDS: MULTIVITAMIN2 1 EA TAB PO SCH (09:47)
[2018-09-28] MEDS: ONDANSETRON HCL 4 MG/2 ML SOL IV PRN (10:54)
[2018-09-28] MEDS: PANTOPRAZOLE SODIUM 40 MG/10 ML PDS IV SCH (11:08)
[2018-09-28] MEDS ORDERED: FUROSEMIDE 40 MG SOL IV SCH (11:45)
[2018-09-28] MEDS: HEPARIN SODIUM 5000 U/ML SOL SC SCH (12:22)
[2018-09-28] MEDS: LACTATED RINGERS 1,000 ML IV SCH ×2 (13:10→23:43)
[2018-09-28] MEDS ORDERED: ALBUTEROL/IPRATROPIUM 1 VIAL SOL INH PRN (14:00)
[2018-09-29] MEDS ORDERED: ACETAMINOPHEN 500 MG 500 MG TAB PO PRN (00:42)
[2018-09-29] MEDS: HEPARIN SODIUM 5000 U/ML SOL SC SCH ×2 (00:55→11:41)
[2018-09-29] MEDS: LORAZEPAM 2 MG/ML SOL IV PRN (00:55)
[2018-09-29 03:22] LABS: APPEARANCE,URINE Clear; BILIRUBIN,URINE 1+ (NEGATIVE); COLOR,URINE Amber; GLUCOSE, URINE (UA) NEGATIVE (NEGATIVE); KETONES,URINE 2+ (NEGATIVE); LEUKOCYTE ESTERASE ,URINE NEGATIVE (NEGATIVE); NITRATE,URINE NEGATIVE (NEGATIVE); OCCULT BLOOD,URINE 1+ (NEG-TRACE); UROBILINOGEN,URINE 0.2 (0.2-1.0 EU)
[2018-09-29 03:39] LABS: EPITHELIAL CELLS 0-2 (SQUAMOUS); ICTOTEST,URINE POSITIVE (NEGATIVE); RBC,URINE 0-2 (0-3AV/HPF)
[2018-09-29 03:40] LABS: BACTERIA 1+ (< 1+); CRYSTALS NEGATIVE (0-3 AVE/HPF)
[2018-09-29] MEDS: SODIUM CHLORIDE 0.9% FLUSH 10 ML SOL IV SCH ×4 (04:25→10:34)
[2018-09-29] MEDS ORDERED: FUROSEMIDE 40 MG SOL IV SCH (06:00)
[2018-09-29] MEDS: LORAZEPAM 0.5 MG TAB PO PRN ×2 (07:14→10:59)
[2018-09-29 07:16] LABS: ALBUMIN 2.8 gm/dl (3.4-5.0); CALCIUM 8.1 mg/dl (8.5-10.1); CARBON DIOXIDE 25.8 mEq/L (21-32); CREATININE 1.17 mg/dl (0.80-1.30); POTASSIUM 3.7 mMol/L (3.5-5.1); TOTAL PROTEIN 6.7 gm/dl (6.4-8.2)
[2018-09-29 07:36] LABS: HEMATOCRIT 45 % (39-53); HEMOGLOBIN 14.8 gm/dl (13.5-17.7); MEAN CORPUSCULAR VOLUME 97 fL (80-100)
[2018-09-29 07:39] LABS: CRP INFLAMMATORY 41.62 mg/dl (0.00-0.33)
[2018-09-29] MEDS ORDERED: HYDROMORPHONE HYDROCHLORIDE 2 MG TAB PO SCH (07:45)
[2018-09-29] MEDS ORDERED: PIPERACILLIN/TAZOBACT 3.375 GM 3 GM in SODIUM CHLORIDE 0.9% 100 ML 100 ML IV SCH (08:00)
[2018-09-29] MEDS ORDERED: VANCOMYCIN HCL 500 MG PDS 1,000 MG in SODIUM CHLORIDE 0.9% 250 ML 250 ML IV SCH (08:00)
[2018-09-29 08:05] LABS: BAND NEUTROPHILS % (MANUAL) 1 %; BASOPHILS % (MANUAL) 0 % (0-3); EOSINOPHILS % (MANUAL) 0 % (0-9); LYMPHOCYTES % (MANUAL) 10 % (10-50); MONOCYTES % (MANUAL) 12 % (0-12); NEUTROPHILS % (MANUAL) 77 % (37-80)
[2018-09-29 08:06] LABS: ANISOCYTOSIS SLIGHT
[2018-09-29 08:11] LABS: TROP I < 0.017 ng/ml (0.000-0.056)
[2018-09-29] MEDS ORDERED: PATIENT EDUCATION 1 MISC PRN (08:40)
[2018-09-29] MEDS ORDERED: VANCOMYCIN HCL 500 MG PDS 2,000 MG in SODIUM CHLORIDE 0.9% 250 ML 250 ML IV ONE (08:41)
[2018-09-29] MEDS ORDERED: POTASSIUM CHLORIDE IV SCH (09:30)
[2018-09-29] MEDS ORDERED: LACTATED RINGERS IV SCH (09:30)
[2018-09-29] MEDS ORDERED: FUROSEMIDE 20mg SOL ONE (09:35)
[2018-09-29] MEDS ORDERED: POTASSIUM CHLORIDE 2 MEQ/ML SOL IV ONE (09:36)
[2018-09-29] MEDS: PANTOPRAZOLE SODIUM 40 MG/10 ML PDS IV SCH (10:04)
[2018-09-29] MEDS ORDERED: HYDROMORPHONE 1 MG/ML SYRINGE IV PRN (10:06)
[2018-09-29] MEDS: MULTIVITAMIN2 1 EA TAB PO SCH (10:10)
[2018-09-29] MEDS: FOLIC ACID 1 MG TAB PO SCH (10:11)
[2018-09-29] MEDS: DOCUSATE SODIUM 100 MG SGL PO PRN (10:11)
[2018-09-29] MEDS: SENNOSIDES A AND B 8.6 MG TAB PO SCH (10:11)
[2018-09-29] MEDS: THIAMINE 100 MG TAB PO SCH (10:11)
[2018-09-29] MEDS ORDERED: PIPERACILLIN/TAZOBACT 3.375 GM PDS IV ONE (10:22)
[2018-09-29] MEDS ORDERED: SODIUM CHLORIDE 0.9% 100 ML 100 ML IV ONE (10:22)
[2018-09-29] MEDS ORDERED: PIPERACILLIN/TAZOBACT 3.375 GM 3.375 GM in SODIUM CHLORIDE 0.9% 100 ML 100 ML IV SCH (10:45)
[2018-09-29 10:47] VITALS: BP 154/101; PULSE 106; RESP 32; TEMP 97.9; O2SAT 94
[2018-09-29] MEDS ORDERED: VANCOMYCIN HYDROCHLORIDE 500 MG PDS IV ONE (11:13)
[2018-09-29] MEDS ORDERED: SODIUM CHLORIDE 0.9% 250 ML 250 ML IV ONE (11:13)
[2018-09-29] MEDS ORDERED: FUROSEMIDE 20mg SOL IV SCH (21:00)
== END 2018-09-29 11:46 | disposition short-term general hospital (02) | DRG 282 ==
LOC: ED 07:43 → ACUTE CARE 15:20
PROVIDERS: ADMIT Family Medicine; ATTEND Family Medicine
DX: K85.21 Alcohol induced acute pancreatitis with uninfected necrosis (principal); A41.9 Sepsis, unspecified organism; F10.230 Alcohol dependence with withdrawal, uncomplicated; F14.10 Cocaine abuse, uncomplicated; I10 Essential (primary) hypertension; R00.0 Tachycardia, unspecified; R00.2 Palpitations; E87.6 Hypokalemia; R11.2 Nausea with vomiting, unspecified; R06.02 Shortness of breath; D72.829 Elevated white blood cell count, unspecified
CPT/HCPCS: 36415; 71045; 71046; 74177; 74178; 80053; 81001; 83735; 84100; 84132; 84484; 85007; 85025; 85027; 85610; 87040; 87088; 93005; 93012; 94762; 96365; 96366; 96374; 96375; 99070; 99232; 99239; 99284; 99285; J1200; J1644; J1940; J2060; J2270; J2405; J2543; J2765; J3010; J3370; J3480; Q9967; A9270-GY; J1170; J2001

== ENCOUNTER 2018-10-22 10:26 | Emergency (ER) | payer OTHER ==
[2018-10-22] MEDS ORDERED: SODIUM CHLORIDE 0.9% 1000ML 1,000 ML IV ONE (10:41)
[2018-10-22 10:51] LABS: HEMATOCRIT 44 % (39-53); HEMOGLOBIN 14.6 gm/dl (13.5-17.7); MEAN CORPUSCULAR HGB CONC 33.4 gm/dl (32.0-36.0); MEAN CORPUSCULAR VOLUME 93 fL (80-100)
[2018-10-22] MEDS: SODIUM CHLORIDE 0.9% FLUSH 10 ML SOL IV PRN ×3 (10:54→14:08)
[2018-10-22 11:00] LABS: ALBUMIN 3.7 gm/dl (3.4-5.0); BILIRUBIN,TOTAL 0.3 mg/dl (0.2-1.0); CALCIUM 8.7 mg/dl (8.5-10.1); CARBON DIOXIDE 22.4 mEq/L (21-32); CREATININE 1.2 mg/dl (0.80-1.30); POTASSIUM 3.4 mMol/L (3.5-5.1); TOTAL PROTEIN 7.7 gm/dl (6.4-8.2)
[2018-10-22 11:05] LABS: ALCOHOL 0.041 gm/dl (0.000-0.08)
[2018-10-22 11:06] LABS: BAND NEUTROPHILS % (MANUAL) 7 %; BASOPHILS % (MANUAL) 0 % (0-3); EOSINOPHILS % (MANUAL) 0 % (0-9); LYMPHOCYTES % (MANUAL) 22 % (10-50); MONOCYTES % (MANUAL) 9 % (0-12); NEUTROPHILS % (MANUAL) 62 % (37-80)
[2018-10-22 11:07] LABS: NORMAL RBCS PRESENT
[2018-10-22] MEDS ORDERED: KETOROLAC TROMETHAMINE 30 MG/ML SOL IV ONE (11:08)
[2018-10-22] MEDS ORDERED: KETOROLAC TROMETHAMINE 30 MG/ML SOL ONE (11:11)
[2018-10-22 11:20] VITALS: TEMP 98.5
[2018-10-22] MEDS ORDERED: LORAZEPAM 2 MG/ML 10ML MDV 2 MG/ML VIAL IV PRN (11:23)
[2018-10-22] MEDS ORDERED: LORAZEPAM 2 MG/ML SOL ONE ×5 (11:26→15:37)
[2018-10-22] MEDS ORDERED: LORAZEPAM 2 MG/ML SOL IV ONE (11:58)
[2018-10-22] MEDS ORDERED: APAP/HYDROCODONE 1 EACH TABLET PO ONE (12:04)
[2018-10-22] MEDS ORDERED: APAP/HYDROCODONE 1 EACH TABLET ONE (12:06)
[2018-10-22 12:13] LABS: APPEARANCE,URINE Clear; BILIRUBIN,URINE NEGATIVE (NEGATIVE); COLOR,URINE Light yellow; GLUCOSE, URINE (UA) NEGATIVE (NEGATIVE); KETONES,URINE NEGATIVE (NEGATIVE); LEUKOCYTE ESTERASE ,URINE NEGATIVE (NEGATIVE); NITRATE,URINE NEGATIVE (NEGATIVE); OCCULT BLOOD,URINE NEGATIVE (NEG-TRACE); PH,URINE 5.5; UROBILINOGEN,URINE 0.2 (0.2-1.0 EU)
[2018-10-22 12:26] LABS: BACTERIA 1+ (< 1+); BARBITUATES NEGATIVE (NEGATIVE); BENZODIAZEPINES NEGATIVE (NEGATIVE); CANNABINOL(THC) POSITIVE (NEGATIVE); CRYSTALS NEGATIVE (0-3 AVE/HPF); METHADONE NEGATIVE (NEGATIVE); RBC,URINE 0-2 (0-3AV/HPF); TRICYCLIC ANTIDEPRESSANTS NEGATIVE (NEGATIVE); WBC,URINE 0-2 (0-5AV/HPF)
[2018-10-22 12:27] LABS: AMPHETAMINES POSITIVE (NEGATIVE); COCAINE(COC) NEGATIVE (NEGATIVE); METHAMPHETAMINES POSITIVE (NEGATIVE); OPIATES(OPI) NEGATIVE (NEGATIVE); OXYCODONE(OXY) NEGATIVE (NEGATIVE); PROPOXYPHENE(PPX) NEGATIVE (NEGATIVE)
[2018-10-22] MEDS: LORAZEPAM 2 MG/ML 10ML MDV 2 MG/ML VIAL IV PRN ×3 (12:57→15:39)
[2018-10-22] MEDS ORDERED: ONDANSETRON HCL 4 MG/2 ML SOL IV PRN (15:14)
[2018-10-22] MEDS ORDERED: MORPHINE SULFATE 10 MG/ML SOL IV PRN (15:14)
[2018-10-22] MEDS ORDERED: ONDANSETRON HCL 4 MG/2 ML SOL ONE (15:53)
[2018-10-22] MEDS ORDERED: MORPHINE SULFATE 10 MG/ML SOL ONE (15:53)
[2018-10-22 18:56] VITALS: BP 128/72; PULSE 118; RESP 23; O2SAT 97
== END 2018-10-22 18:09 | disposition home or self-care (01) ==
LOC: ED 10:26 → SUPCPDRO 10:26 → ED 18:09
DX: F11.10 Opioid abuse, uncomplicated (principal); R07.9 Chest pain, unspecified; F14.10 Cocaine abuse, uncomplicated; R00.2 Palpitations; R00.0 Tachycardia, unspecified; Y90.2 Blood alcohol level of 40-59 mg/100 ml; F12.90 Cannabis use, unspecified, uncomplicated
CPT/HCPCS: 71045; 80053; 80305; 80307; 81001; 84484; 85007; 85027; 93005; 96365; 96374; 96375; 99284; 99285; J1885; J2060; J2270; J2405; A9270-GY

== ENCOUNTER 2018-10-30 06:17 | Emergency (ER) | payer OTHER ==
[2018-10-30 06:31] VITALS: TEMP 100
[2018-10-30] MEDS ORDERED: SODIUM CHLORIDE 0.9% FLUSH 10 ML SOL IV PRN (06:43)
[2018-10-30] MEDS ORDERED: ASPIRIN 81 MG CHEWABLE CTB PO STA (06:43)
[2018-10-30] MEDS ORDERED: NITROGLYCERIN 0.4 MG TAB SL PRN (06:43)
[2018-10-30] MEDS ORDERED: METOPROLOL TARTRATE 5 MG/5 ML SOL IV ONE ×4 (06:47→07:18)
[2018-10-30 06:56] LABS: BASOPHILS % (AUTO) 1 % (0-3); EOSINOPHILS % (AUTO) 1 % (0-9); HEMATOCRIT 46 % (39-53); HEMOGLOBIN 15.5 gm/dl (13.5-17.7); LYMPHOCYTES % (AUTO) 31.5 % (10-50); MEAN CORPUSCULAR HEMOGLOBIN 31.3 pg (27.0-32.0); MEAN CORPUSCULAR VOLUME 92 fL (80-100); MONOCYTES % (AUTO) 5.3 % (0-12); NEUTROPHILS % (AUTO) 61.1 % (37-80)
[2018-10-30 07:11] LABS: ALBUMIN 3.6 gm/dl (3.4-5.0); ALKALINE PHOSPHATASE 129 IU/L (46-116); ALT 75 IU/L (14-63); AST 55 IU/L (15-37); BILIRUBIN,TOTAL 0.4 mg/dl (0.2-1.0); BLOOD UREA NITROGEN 9 mg/dl (7-18); CALCIUM 8.2 mg/dl (8.5-10.1); CARBON DIOXIDE 23.7 mEq/L (21-32); CHLORIDE 103 mMol/L (98-107); CREATINE KINASE 208 U/L (39-308); CREATININE 1.11 mg/dl (0.80-1.30); GLUCOSE 115 mg/dl (74-106); POTASSIUM 3.9 mMol/L (3.5-5.1); SODIUM 140 mMol/L (136-145); TOTAL PROTEIN 7.7 gm/dl (6.4-8.2); TROP I < 0.017 ng/ml (0.000-0.056)
[2018-10-30] MEDS ORDERED: SODIUM CHLORIDE 0.9% 1000ML 1,000 ML IV SCH (07:15)
[2018-10-30] MEDS ORDERED: METOPROLOL TARTRATE 25 MG TAB ONE ×2 (07:18→07:20)
[2018-10-30] MEDS ORDERED: METOPROLOL SUCCINATE 50 MG ER TAB ONE (07:30)
[2018-10-30] MEDS ORDERED: LORAZEPAM 2 MG/ML SOL ONE ×2 (08:31→11:02)
[2018-10-30] MEDS ORDERED: LORAZEPAM 2 MG/ML SOL IV ONE ×2 (08:33→10:54)
[2018-10-30] MEDS ORDERED: METOPROLOL SUCCINATE 50 MG ER TAB PO SCH (09:00)
[2018-10-30 09:07] LABS: APPEARANCE,URINE Clear; BILIRUBIN,URINE NEGATIVE (NEGATIVE); COLOR,URINE Yellow; GLUCOSE, URINE (UA) NEGATIVE (NEGATIVE); KETONES,URINE NEGATIVE (NEGATIVE); LEUKOCYTE ESTERASE ,URINE NEGATIVE (NEGATIVE); NITRATE,URINE NEGATIVE (NEGATIVE); OCCULT BLOOD,URINE NEGATIVE (NEG-TRACE); UROBILINOGEN,URINE 0.2 (0.2-1.0 EU)
[2018-10-30 09:20] LABS: AMPHETAMINES NEGATIVE (NEGATIVE); BACTERIA TRACE (< 1+); BARBITUATES NEGATIVE (NEGATIVE); BENZODIAZEPINES NEGATIVE (NEGATIVE); CANNABINOL(THC) POSITIVE (NEGATIVE); COCAINE(COC) NEGATIVE (NEGATIVE); CRYSTALS NEGATIVE (0-3 AVE/HPF); EPITHELIAL CELLS 0-1 (SQUAMOUS); METHADONE NEGATIVE (NEGATIVE); METHAMPHETAMINES POSITIVE (NEGATIVE); OPIATES(OPI) NEGATIVE (NEGATIVE); OXYCODONE(OXY) NEGATIVE (NEGATIVE); PROPOXYPHENE(PPX) NEGATIVE (NEGATIVE); RBC,URINE NEGATIVE (0-3AV/HPF); TRICYCLIC ANTIDEPRESSANTS NEGATIVE (NEGATIVE); WBC,URINE 0-2 (0-5AV/HPF)
[2018-10-30 11:21] VITALS: BP 149/100; PULSE 98; RESP 16; O2SAT 94
== END 2018-10-30 11:15 | disposition home or self-care (01) ==
LOC: ED 06:17
DX: F11.10 Opioid abuse, uncomplicated (principal); R07.89 Other chest pain; R06.02 Shortness of breath; Z72.89 Other problems related to lifestyle; F12.90 Cannabis use, unspecified, uncomplicated
CPT/HCPCS: 71045; 80053; 80305; 81001; 82550; 84484; 85025; 85610; 85730; 93005; 96365; 96366; 96374; 96375; 99284; 99285; J2060; A9270-GY; J3490

== ENCOUNTER 2018-11-18 01:16 | Inpatient (IN) | payer OTHER ==
[2018-11-18] MEDS ORDERED: SODIUM CHLORIDE 0.9% 1000ML 1,000 ML IV ONE ×2 (01:31→02:45)
[2018-11-18] MEDS ORDERED: LORAZEPAM 2 MG/ML SOL IV ONE (01:31)
[2018-11-18 01:40] LABS: BASOPHILS % (AUTO) 1 % (0-3); EOSINOPHILS % (AUTO) 1 % (0-9); HEMATOCRIT 43 % (39-53); HEMOGLOBIN 14.4 gm/dl (13.5-17.7); LYMPHOCYTES % (AUTO) 44.3 % (10-50); MEAN CORPUSCULAR HEMOGLOBIN 31.8 pg (27.0-32.0); MEAN CORPUSCULAR HGB CONC 33.9 gm/dl (32.0-36.0); MEAN CORPUSCULAR VOLUME 94 fL (80-100); MONOCYTES % (AUTO) 8.1 % (0-12); NEUTROPHILS % (AUTO) 45.2 % (37-80)
[2018-11-18] MEDS ORDERED: LORAZEPAM 2 MG/ML SOL ONE (01:44)
[2018-11-18] MEDS ORDERED: FENTANYL 100MCG/2ML SOL IV ONE (01:48)
[2018-11-18] MEDS ORDERED: FENTANYL 100MCG/2ML SOL ONE ×5 (01:53→20:04)
[2018-11-18 01:57] LABS: ALBUMIN 3.6 gm/dl (3.4-5.0); ALKALINE PHOSPHATASE 106 IU/L (46-116); ALT 87 IU/L (14-63); AST 80 IU/L (15-37); BILIRUBIN,TOTAL 0.3 mg/dl (0.2-1.0); BLOOD UREA NITROGEN 7 mg/dl (7-18); CALCIUM 8.2 mg/dl (8.5-10.1); CARBON DIOXIDE 24.6 mEq/L (21-32); CHLORIDE 106 mMol/L (98-107); CREATININE 1.04 mg/dl (0.80-1.30); GLUCOSE 138 mg/dl (74-106); TOTAL PROTEIN 7.5 gm/dl (6.4-8.2); TROP I < 0.017 ng/ml (0.000-0.056)
[2018-11-18] MEDS ORDERED: POTASSIUM CHLORIDE 10 MEQ TER PO ONE (02:38)
[2018-11-18] MEDS ORDERED: POTASSIUM CHLORIDE 10 MEQ TER ONE (02:39)
[2018-11-18] MEDS ORDERED: ONDANSETRON HCL 4 MG/2 ML SOL IV PRN (03:38)
[2018-11-18] MEDS ORDERED: ALUMINUM/MAGNESIUM 30 ML SUS PO PRN (03:38)
[2018-11-18] MEDS: LORAZEPAM 2 MG/ML SOL IV PRN ×4 (04:18→10:06)
[2018-11-18] MEDS: FENTANYL 100MCG/2ML SOL IV PRN ×4 (04:53→20:08)
[2018-11-18 05:27] LABS: MAGNESIUM 1.9 mg/dl (1.8-2.4)
[2018-11-18 05:29] LABS: AMPHETAMINES NEGATIVE (NEGATIVE); BARBITUATES NEGATIVE (NEGATIVE); BENZODIAZEPINES NEGATIVE (NEGATIVE); CANNABINOL(THC) POSITIVE (NEGATIVE); COCAINE(COC) NEGATIVE (NEGATIVE); METHADONE NEGATIVE (NEGATIVE); METHAMPHETAMINES POSITIVE (NEGATIVE); OPIATES(OPI) NEGATIVE (NEGATIVE); OXYCODONE(OXY) NEGATIVE (NEGATIVE); PROPOXYPHENE(PPX) NEGATIVE (NEGATIVE); TRICYCLIC ANTIDEPRESSANTS NEGATIVE (NEGATIVE)
[2018-11-18] MEDS: LORAZEPAM 0.5 MG TAB PO PRN ×4 (06:34→22:36)
[2018-11-18] MEDS: LACTATED RINGERS 1,000 ML IV SCH ×3 (07:16→21:38)
[2018-11-18 07:22] LABS: BASOPHILS % (AUTO) 1 % (0-3); EOSINOPHILS % (AUTO) 1 % (0-9); HEMATOCRIT 41 % (39-53); HEMOGLOBIN 13.9 gm/dl (13.5-17.7); LYMPHOCYTES % (AUTO) 41.1 % (10-50); MEAN CORPUSCULAR HGB CONC 34.2 gm/dl (32.0-36.0); MEAN CORPUSCULAR VOLUME 93 fL (80-100); MONOCYTES % (AUTO) 7.1 % (0-12)
[2018-11-18 07:38] LABS: CALCIUM 7.7 mg/dl (8.5-10.1); CARBON DIOXIDE 26.9 mEq/L (21-32); CREATININE 0.93 mg/dl (0.80-1.30); CRP INFLAMMATORY 0.08 mg/dl (0.00-0.33)
[2018-11-18] MEDS ORDERED: CLONIDINE 0.1 MG TAB PO PRN (08:15)
[2018-11-18] MEDS ORDERED: PANTOPRAZOLE SODIUM 40 MG/10 ML PDS IV SCH (09:00)
[2018-11-18] MEDS ORDERED: AMLODIPINE 5 MG TAB PO SCH (09:00)
[2018-11-18] MEDS ORDERED: LISINOPRIL 5 MG TAB PO SCH (10:00)
[2018-11-18] MEDS ORDERED: PROMETHAZINE HYDROCHLORIDE 25 MG/ML SOL IV PRN (10:29)
[2018-11-18 19:36] VITALS: TEMP 98
[2018-11-18 19:57] VITALS: BP 156/118; PULSE 101; RESP 18; O2SAT 95
[2018-11-18] MEDS ORDERED: TRAZODONE HYDROCHLORIDE 50 MG TAB PO PRN (21:00)
== END 2018-11-18 23:30 | disposition left against medical advice (07) | DRG 201 ==
LOC: ED 01:16 → ACUTE CARE 03:33
PROVIDERS: ADMIT Family Medicine; ATTEND Family Medicine
DX: R00.0 Tachycardia, unspecified (principal); K85.90 Acute pancreatitis without necrosis or infection, unspecified; F10.230 Alcohol dependence with withdrawal, uncomplicated; R10.13 Epigastric pain; R07.9 Chest pain, unspecified; F14.10 Cocaine abuse, uncomplicated; I10 Essential (primary) hypertension; F15.10 Other stimulant abuse, uncomplicated
CPT/HCPCS: 36415; 80048; 80053; 80305; 83690; 83735; 84100; 84484; 85025; 86140; 93005; 93012; 94762; 96365; 96374; 96375; 99236; 99285; J2060; J2405; J2550; J3010; A9270-GY

== ENCOUNTER 2018-11-26 10:29 | Emergency (ER) | payer OTHER ==
[2018-11-26 10:43] VITALS: TEMP 98.6
[2018-11-26] MEDS ORDERED: SODIUM CHLORIDE 0.9% FLUSH 10 ML SOL IV PRN (10:43)
[2018-11-26] MEDS ORDERED: ASPIRIN 81 MG CHEWABLE CTB PO STA (10:43)
[2018-11-26] MEDS ORDERED: ASPIRIN 81 MG CHEWABLE CTB ONE (10:45)
[2018-11-26] MEDS ORDERED: LORAZEPAM 2 MG/ML SOL ONE (10:46)
[2018-11-26] MEDS ORDERED: LORAZEPAM 2 MG/ML SOL IV ONE ×2 (10:50→11:05)
[2018-11-26] MEDS ORDERED: NITROGLYCERIN 0.4 MG TAB SL ONE (10:52)
[2018-11-26] MEDS: NITROGLYCERIN 0.4 MG TAB SL PRN ×3 (10:53→11:06)
[2018-11-26] MEDS: SODIUM CHLORIDE 0.9% 1000ML 1,000 ML IV SCH ×2 (10:56→12:20)
[2018-11-26 11:00] LABS: BASOPHILS % (AUTO) 1 % (0-3); EOSINOPHILS % (AUTO) 1 % (0-9); HEMATOCRIT 46 % (39-53); HEMOGLOBIN 15.4 gm/dl (13.5-17.7); LYMPHOCYTES % (AUTO) 47.7 % (10-50); MEAN CORPUSCULAR HEMOGLOBIN 31.3 pg (27.0-32.0); MEAN CORPUSCULAR HGB CONC 33.6 gm/dl (32.0-36.0); MEAN CORPUSCULAR VOLUME 93 fL (80-100); MONOCYTES % (AUTO) 8.6 % (0-12); NEUTROPHILS % (AUTO) 41.6 % (37-80)
[2018-11-26 11:07] LABS: ALCOHOL 0.242 gm/dl (0.000-0.08); BLOOD UREA NITROGEN 6 mg/dl (7-18); CALCIUM 8.6 mg/dl (8.5-10.1); CARBON DIOXIDE 25.9 mEq/L (21-32); CHLORIDE 101 mMol/L (98-107); CREATINE KINASE 228 U/L (39-308); CREATININE 0.93 mg/dl (0.80-1.30); GLUCOSE 102 mg/dl (74-106); INR 1.03 (0.86-1.12); MAGNESIUM 1.8 mg/dl (1.8-2.4); POTASSIUM 3.2 mMol/L (3.5-5.1); SODIUM 139 mMol/L (136-145); TROP I < 0.017 ng/ml (0.000-0.056)
[2018-11-26] MEDS ORDERED: DILTIAZEM 5 MG/ML SOL IV ONE ×2 (11:15→11:17)
[2018-11-26] MEDS ORDERED: POTASSIUM CHLORIDE 10 MEQ TER PO ONE (11:16)
[2018-11-26] MEDS ORDERED: POTASSIUM CHLORIDE 10 MEQ TER ONE (11:18)
[2018-11-26] MEDS ORDERED: SODIUM CHLORIDE 0.9% 1000ML 1,000 ML IV SCH (11:30)
[2018-11-26 11:43] LABS: AMPHETAMINES NEGATIVE (NEGATIVE); BARBITUATES NEGATIVE (NEGATIVE); BENZODIAZEPINES NEGATIVE (NEGATIVE); CANNABINOL(THC) POSITIVE (NEGATIVE); COCAINE(COC) NEGATIVE (NEGATIVE); METHAMPHETAMINES NEGATIVE (NEGATIVE); OPIATES(OPI) NEGATIVE (NEGATIVE); PROPOXYPHENE(PPX) NEGATIVE (NEGATIVE)
[2018-11-26 11:44] LABS: OXYCODONE(OXY) NEGATIVE (NEGATIVE)
[2018-11-26 11:58] LABS: ALBUMIN 4.1 gm/dl (3.4-5.0); BILIRUBIN,DIRECT 0.2 mg/dl (0.0-0.2); BILIRUBIN,TOTAL 0.5 mg/dl (0.2-1.0)
[2018-11-26 12:03] LABS: AMYLASE 34 IU/L (25-115)
[2018-11-26 13:18] VITALS: O2SAT 97
[2018-11-26 13:37] VITALS: RESP 22
[2018-11-26 14:04] VITALS: BP 166/94; PULSE 110
[2018-11-26] MEDS ORDERED: KETOROLAC TROMETHAMINE 30 MG/ML SOL ONE (14:27)
[2018-11-26] MEDS ORDERED: KETOROLAC TROMETHAMINE 30 MG/ML SOL IV ONE (14:27)
== END 2018-11-26 15:02 | disposition home or self-care (01) ==
LOC: ED 10:29
DX: K86.3 Pseudocyst of pancreas (principal); K85.90 Acute pancreatitis without necrosis or infection, unspecified; F10.230 Alcohol dependence with withdrawal, uncomplicated; I10 Essential (primary) hypertension; R07.9 Chest pain, unspecified; Y90.7 Blood alcohol level of 200-239 mg/100 ml; F12.90 Cannabis use, unspecified, uncomplicated
CPT/HCPCS: 71045; 74177; 80048; 80076; 80305; 80307; 82150; 82550; 83690; 83735; 84484; 85025; 85610; 85730; 93005; 96365; 96366; 96374; 96375; 99284; 99285; J1885; J2060; Q9967; A9270-GY; J3490

== ENCOUNTER 2018-11-28 04:26 | Emergency (ER) | payer OTHER ==
[2018-11-28 04:59] VITALS: TEMP 97.9
[2018-11-28] MEDS ORDERED: SODIUM CHLORIDE 0.9% 1000ML 1,000 ML IV ONE ×2 (05:02→06:28)
[2018-11-28] MEDS: SODIUM CHLORIDE 0.9% FLUSH 10 ML SOL IV PRN ×2 (05:08→06:28)
[2018-11-28] MEDS ORDERED: LORAZEPAM 2 MG/ML SOL IV ONE ×2 (05:09→06:28)
[2018-11-28] MEDS ORDERED: LORAZEPAM 2 MG/ML SOL ONE ×2 (05:10→06:31)
[2018-11-28 05:18] LABS: BASOPHILS % (AUTO) 2 % (0-3); EOSINOPHILS % (AUTO) 0 % (0-9); HEMATOCRIT 44 % (39-53); HEMOGLOBIN 14.7 gm/dl (13.5-17.7); MEAN CORPUSCULAR HEMOGLOBIN 31.9 pg (27.0-32.0); MEAN CORPUSCULAR HGB CONC 33.7 gm/dl (32.0-36.0); MEAN CORPUSCULAR VOLUME 95 fL (80-100); MONOCYTES % (AUTO) 9.2 % (0-12); NEUTROPHILS % (AUTO) 50.8 % (37-80)
[2018-11-28 05:34] LABS: BLOOD UREA NITROGEN 4 mg/dl (7-18); CALCIUM 8.3 mg/dl (8.5-10.1); CARBON DIOXIDE 25.5 mEq/L (21-32); CHLORIDE 102 mMol/L (98-107); CREATINE KINASE 246 U/L (39-308); CREATININE 0.93 mg/dl (0.80-1.30); GLUCOSE 106 mg/dl (74-106); POTASSIUM 3.3 mMol/L (3.5-5.1); SODIUM 140 mMol/L (136-145); TROP I < 0.017 ng/ml (0.000-0.056)
[2018-11-28 06:49] VITALS: BP 116/73; PULSE 98; RESP 20; O2SAT 95
== END 2018-11-28 07:00 | disposition home or self-care (01) ==
LOC: ED 04:26
DX: R07.9 Chest pain, unspecified (principal); F10.230 Alcohol dependence with withdrawal, uncomplicated; F12.90 Cannabis use, unspecified, uncomplicated
CPT/HCPCS: 36415; 80048; 82550; 84484; 85025; 93005; 96365; 96366; 96374; 99283; 99285; J2060

== ENCOUNTER 2018-11-29 03:49 | Emergency (ER) | payer OTHER ==
[2018-11-29] MEDS ORDERED: ASPIRIN 81 MG CHEWABLE CTB PO STA (03:52)
[2018-11-29] MEDS ORDERED: SODIUM CHLORIDE 0.9% FLUSH 10 ML SOL IV PRN (03:52)
[2018-11-29] MEDS ORDERED: NITROGLYCERIN 0.4 MG TAB SL PRN (03:52)
[2018-11-29 03:59] VITALS: TEMP 98.2
[2018-11-29] MEDS ORDERED: ASPIRIN 81 MG CHEWABLE CTB ONE (03:59)
[2018-11-29 04:03] LABS: BASOPHILS % (AUTO) 1 % (0-3); EOSINOPHILS % (AUTO) 1 % (0-9); HEMATOCRIT 45 % (39-53); HEMOGLOBIN 15.2 gm/dl (13.5-17.7); LYMPHOCYTES % (AUTO) 36.4 % (10-50); MEAN CORPUSCULAR HEMOGLOBIN 31.8 pg (27.0-32.0); MEAN CORPUSCULAR VOLUME 94 fL (80-100); MONOCYTES % (AUTO) 8.6 % (0-12); NEUTROPHILS % (AUTO) 53.5 % (37-80)
[2018-11-29] MEDS ORDERED: NITROGLYCERIN 0.4 MG TAB SL ONE (04:04)
[2018-11-29 04:22] LABS: BLOOD UREA NITROGEN 4 mg/dl (7-18); CALCIUM 8.6 mg/dl (8.5-10.1); CARBON DIOXIDE 24.8 mEq/L (21-32); CHLORIDE 101 mMol/L (98-107); CREATINE KINASE 282 U/L (39-308); CREATININE 0.97 mg/dl (0.80-1.30); GLUCOSE 123 mg/dl (74-106); POTASSIUM 3.1 mMol/L (3.5-5.1); SODIUM 140 mMol/L (136-145); TROP I < 0.017 ng/ml (0.000-0.056)
[2018-11-29 04:25] LABS: ALCOHOL 0.323 gm/dl (0.000-0.08)
[2018-11-29] MEDS ORDERED: POTASSIUM CHLORIDE 2 MEQ/ML 40 MEQ, LIDOCAINE HCL 1% MDV 2 ML in SODIUM CHLORIDE 0.9% 5... IV ONE (04:59)
[2018-11-29] MEDS ORDERED: POTASSIUM CHLORIDE 2 MEQ/ML SOL IV ONE (05:05)
[2018-11-29] MEDS ORDERED: LIDOCAINE HCL 1% MPF 30 SOL ONE (05:06)
[2018-11-29 06:25] VITALS: O2SAT 94
[2018-11-29 06:35] VITALS: BP 137/88; PULSE 102; RESP 13
== END 2018-11-29 06:45 | disposition home or self-care (01) ==
LOC: ED 03:49
DX: R07.9 Chest pain, unspecified (principal); R06.02 Shortness of breath; F10.10 Alcohol abuse, uncomplicated; Y90.8 Blood alcohol level of 240 mg/100 ml or more; F41.9 Anxiety disorder, unspecified
CPT/HCPCS: 80048; 80307; 82550; 83690; 84484; 85025; 93005; 96365; 99282; 99284; J3480; A9270-GY; J2001

== ENCOUNTER 2019-01-24 11:37 | Emergency (ER) | payer OTHER | END 2019-01-24 12:29 | disposition home or self-care (01) | LOC: ED 11:37 ==